=== PATIENT | female | born 1950 | race Caucasian/White ===

== ENCOUNTER 2019-04-14 17:11 | Emergency (ER) | payer SELFPAY ==
--- NOTE | 2019-04-14 17:59 | Emergency Department Record ---
History of Present Illness - General Chief Complaint: Depression Stated Complaint: DEPRESSION AND ALCOHOL ABUSE Time Seen by Provider: 04/14/19 17:17 Source: Patient, Family Mode of Arrival: Ambulatory Limitations: No limitations Travel/Exposure to [facility] Within 21 Days of Symptoms: No - History of Present Illness Initial Comments: The patient is here due to being very depressed and having an alcohol abuse problem. She has been depressed for at least 2 months and did loose her job in [employer] at [employer] [employer] [facility] [employer] due to alcohol abuse. Recently the depression has worsened. She is drinking 1-2 bottles of wine a day and also has been falling a lot recently. Three nights ago she did go to [place] and was evaluated in the ER there and did talk with a director of social media marketing. She was discharged at 3 am with out patient F/U. The patient had been thinking of hurting herself prior to that visit but since then has had no suicidal ideation or intent. She denies any medical issues and has had no recent illnesses. She did discuss this with her PCP Dr. Alejandro Bennett and he did contact us about medical clearance and then inpatient transfer to [place] for treatment. MD Complaint: Feels depressed Onset/Timin -: Month(s) Associated Psychiatric Symptoms: Depression, Other History of same: No Context: Recent alcohol abuse Details of Plan: Currently pt denies any self harm.. Wants to get help. - Kayla Coma Scale Eye Response: (4) Open spontaneously Motor Response: (6) Obeys commands Verbal Response: (5) Oriented [place] Total: 15 - Related Data Home Medications Medication Instructions Recorded Confirmed Last Taken No Home Med [NO HOME MEDS] 04/14/19 04/14/19 Unknown Allergies Allergy/AdvReac Type Severity Reaction Status Date / Time No Known Drug Allergies Allergy Verified 04/14/19 17:37 Review of Systems Constitutional: Denies: Chills, Fever Eyes: Denies: Eye discharge ENT: Denies: Congestion Respiratory: Denies: Cough, Dyspnea Cardiovascular: Denies: Arrhythmia Endocrine: Denies: Fatigue Past Medical History - SOCIAL HISTORY Smoking Status: Current every day smoker Alcohol Use: Heavy Drug Use: None - RESPIRATORY Hx Respiratory Disorders: No - CARDIOVASCULAR Hx Cardio Disorders: No - NEURO Hx Neuro Disorders: No - GI Hx GI Disorders: No - Hx Genitourinary Disorders: No - ENDOCRINE Hx Endocrine Disorders: No - MUSCULOSKELETAL Hx Musculoskeletal Disorders: Yes - PSYCH Hx Psych Problems: Yes Hx Depression: Yes - HEMATOLOGY/ONCOLOGY Hx Hematology/Oncology Disorders: No Family Medical History Any Significant Family History?: No Physical Exam - General General Appearance: Alert, Oriented x3, Cooperative, No acute distress - Head Head exam: Atraumatic, Normocephalic, Normal inspection - Eye Eye exam: Normal appearance, PERRL, EOMI - ENT Throat exam: Normal inspection. negative: Tonsillar erythema, Tonsillar exudate - Neck Neck exam: Normal inspection, Full ROM. negative: Tenderness - Respiratory Respiratory exam: Normal lung sounds bilaterally. negative: Respiratory distress - Cardiovascular Cardiovascular Exam: Regular rate, Normal rhythm, Normal heart sounds, Tachycardia - GI/Abdominal GI/Abdominal exam: Soft, Normal bowel sounds. negative: Tenderness - Extremities Extremities exam: Normal inspection, Full ROM, Normal capillary refill. negative: Calf tenderness, Pedal edema, Tenderness - Neurological Neurological exam: Alert, Normal gait, Oriented X3, Other (Neg tremors). negative: Abnormal gait, Altered, Motor sensory deficit - Psychiatric Psychiatric exam: Depressed. negative: Agitated, Anxious, Flat affect - Skin Skin exam: negative: Rash Course Vital Signs 04/14/19 17:19 Pulse Rate 141 H Respiratory 18 Rate Blood Pressure 125/80 Pulse Ox 99 - Reevaluation(s) Reevaluation #1: The patient is doing a lot better at this time. Her HR is much improved and she is resting comfortably. I do not see any signs of withdrawal presently but will continue to monitor closely. Due to the severe depression I do feel the prudent course of action is to continue with the plan to admit to Dr. Bennett's team at [facility]. Dr. Bennett did send the patient in her for medical clearance. The patient is in agreement with the plan also. I did discuss the case with Dr. Jauregui at [facility] and she does accept the patient for admission. 04/14/19 19:30 Reevaluation #2: The patient is ambulating normally at this time with no ataxia or tremors. I did offer an ambulance ride over to [facility] but the patient would like to go by car. Her daughter feels comfortable driving her. I told her if she changes her mind we can provide the ambulance service. 04/14/19 19:36 Medical Decision Making - Data Complexity MDM Data: Labs Ordered and/or Reviewed, X-Ray Ordered and/or Reviewed, EKG Ordered and/or Reviewed - Lab Data Result diagrams: 04/14/19 18:35 04/14/19 18:35 - EKG Data -: EKG Interpreted by Me EKG: No Acute Changes (Sinus tach at 123, Neg ST changes.) - Radiology Data Radiology results: Report reviewed (CXR: Neg Head CT: Neg for acute changes.) Disposition Disposition: Transfer Clinical Impression: Depression Qualifiers: Depression Type: unspecified Qualified Code(s): F32.9 - Major depressive disorder, single episode, unspecified Disposition: Acute Care Hospital Transfer Transfer To: [facility] Reason For Transfer: Psychiatry Accepting Physician: Juventino Time Discussed w/Accepting Physician: 19:32 Condition: (2) Stable Forms: Patient Portal Access Time of Disposition: 19:32 Quality - Quality Measures Quality Measures: N/A - Blood Pressure Screening View Details: Yes Does Patient Have Any of the Following: No Blood Pressure Classification: Pre-Hypertensive BP Reading Systolic Measurement: 125 Diastolic Measurement: 80 Screening for High Blood Pressure: < Pre-Hypertensive BP, F/U Documented > [G8950] Pre-Hypertensive Follow-up Interventions: Referral to alternative/primary care provider.
[2019-04-14] MEDS ORDERED: 0.9 % SODIUM CHLORIDE 1,000 ML BAG IV ONE (18:27)
--- NOTE | 2019-04-14 18:39 | CT SCAN REPORT ---
EXAMINATION: HEAD WO CONTRAST EXAM DATE: 04/14/2019 6:35 PM TECHNIQUE: Noncontrast axial images were obtained to the brain. INDICATION: frequent falls. COMPARISON: None. ENCOUNTER: Not applicable HAND DOMINANCE: Unknown FINDINGS: Prominent perivascular spaces or chronic lacunar infarcts in the basal ganglia. The brain parenchyma is unremarkable for age. No loss of phan-white matter differentiation or sulcal effacement to indicat e acute infarction. No evidence of intracranial mass. The ventricles, sulci, and subarachnoid spaces are mildly enlarged. The basal cisterns are patent and there is no midline shift or herniation. No intra-axial or extra-axial fluid collection. No evidence of intracranial hemorrhage. The paranasal sinuses, mastoid air cells, and orbits are unremarkable. The calvarium is intact. IMPRESSION: 1. No CT evidence of intracranial hemorrhage or acute intracranial abnormality 2. Mild cerebral and cerebellar atrophy Dictated by: LEIGH NUNES MD on 04/14/2019 6:35 PM. .
[2019-04-14 18:41] LABS: ABSOLUTE NEUTROPHIL COUNT 2.39; BASO % 0.3 % (0-6); GRAN % 59.8 % (47-80); HEMATOCRIT 41.4 % (35.0-47.0); HEMOGLOBIN 14.6 gm/dl (11.6-16.0); LYMPH % 27.6 % (16-45); MEAN CORPUSCULAR HEMOGLOBIN 39.1 pg (27-33); MEAN CORPUSCULAR HGB CONC 35.3 g/dl (32-36); MEAN PLATELET VOLUME 10.7 fl (7.4-10.4); MONO % 11.3 % (0-9); PLATELET COUNT 180 K/uL (130-400); RED BLOOD COUNT 3.73 M/uL (3.80-5.40); RED CELL DISTRIBUTION WIDTH 15.1 % (11.5-14.5); URINE APPEARANCE CLEAR; URINE BILIRUBIN NEGATIVE (NEGATIVE); URINE BLOOD NEGATIVE (NEGATIVE); URINE COLOR YELLOW; URINE GLUCOSE (UA) NEGATIVE (NEGATIVE); URINE KETONE NEGATIVE (NEGATIVE); URINE LEUKOCYTE ESTERASE NEGATIVE (NEGATIVE); URINE NITRITE NEGATIVE (NEGATIVE); URINE PROTEIN NEGATIVE (NEGATIVE); URINE UROBILINOGEN 0.2 E.U./dL (0.20 - 1.00)
[2019-04-14 18:47] LABS: AMPHETAMINE SCREEN URINE NOT DETECTED; BARBITURATE SCREEN URINE NOT DETECTED; BENZODIAZEPINE SCREEN URINE NOT DETECTED; COCAINE SCREEN URINE NOT DETECTED; METHADONE SCREEN URINE NOT DETECTED; METHAMPHETAMINE SCREEN NOT DETECTED; OPIATE SCREEN URINE NOT DETECTED; OXYCODONE SCREEN URINE NOT DETECTED; PHENCYCLIDINE SCREEN URINE NOT DETECTED; PROPOXYPHENE SCREEN URINE NOT DETECTED; THC SCREEN URINE NOT DETECTED; TRICYCLIC ANTIDEPRESSANT SCRN NOT DETECTED
[2019-04-14 18:54] LABS: PARTIAL THROMBOPLASTIN TIME 27.9 SECONDS (24.5-39.1); PROTHROMBIN TIME (PATIENT) 9.8 SECONDS (9.5-12.1)
[2019-04-14 18:55] LABS: BLOOD UREA NITROGEN 4 mg/dL (8-23); CREATININE 0.9 mg/dL (0.5-0.9); EST GLOMERULAR FILTRATION RATE > 60 mL/min
[2019-04-14 18:56] LABS: TOTAL PROTEIN 7.2 g/dL (6.6-8.7)
--- NOTE | 2019-04-14 18:56 | RADIOLOGY REPORT ---
EXAMINATION: Frontal and Lateral Chest EXAM DATE: 04/14/2019 6:33 PM INDICATION: frequent falls FINDINGS: Frontal and lateral views show clear lungs, normal heart size, and normal hilar and mediast inal structures. IMPRESSION: Normal chest. Dictated by: Aaron Jennings MD on 04/14/2019 6:53 PM. .
[2019-04-14 18:58] LABS: GLUCOSE,RANDOM 111 mg/dL (74-109)
[2019-04-14 19:00] LABS: ALB/GLOB RATIO 1.3 (1.1-1.8); ALT/SGPT 34 U/L (<33); AST/SGOT 43 U/L (10.0-35.0)
[2019-04-14 19:01] LABS: ALKALINE PHOSPHATASE 75 U/L (35-104)
[2019-04-14] MEDS ORDERED: POTASSIUM CHLORIDE 20 MEQ TABLET PO ONE (19:02)
[2019-04-14 19:12] LABS: THYROID STIMULATING HORMONE 1.22 uIU/mL (0.270-4.20)
== END 2019-04-14 20:48 | disposition short-term general hospital (02) ==
LOC: ER 17:11
DX: F32.9 Major depressive disorder, single episode, unspecified (principal); R00.0 Tachycardia, unspecified; R29.6 Repeated falls; F10.10 Alcohol abuse, uncomplicated; F17.210 Nicotine dependence, cigarettes, uncomplicated
CPT/HCPCS: 99285; 99284; 85025; 85730; 85610; 80053; 81003; 84443; 80305; 84484; 71046; 70450; 93005; 93010; G0480; 80320; J7030